=== PATIENT | male | born 1950 | race Hispanic/Latino ===

== ENCOUNTER 2018-12-21 09:00 | Day surgery (SDC) | payer OTHER ==
[2018-12-19 16:12] VITALS: BP 118/76
[2018-12-19 16:13] LABS: BASOPHILS % (AUTO) 0.7 % (0.0-5.0); EOSINOPHILS % (AUTO) 2.8 % (0.0-8.0); HEMATOCRIT 42.3 % (42-54); MEAN CORPUSCULAR HGB CONC 33.2 g/dL (32.0-36.0); MEAN CORPUSCULAR VOLUME 90.5 fL (79-99); NEUTROPHILS % (AUTO) 67.5 % (40.0-77.0); PLATELET COUNT (AUTO) 219 K/uL (130-400); RED BLOOD CELL COUNT(AUTO) 4.68 MIL/uL (4.50-6.20); RED CELL DISTRIBUTION WIDTH 13.2 % (11.0-15.5)
[2018-12-19 16:22] LABS: POTASSIUM 3.8 mmol/L (3.5-5.1)
[~2018-12-21] VITALS: Ht 167.6 cm; Wt 81.6 kg
[2018-12-21] VITALS (18 sets, daily range): BP systolic 109–127; BP diastolic 70–84
[~2018-12-21 09:00] MED LIST: ASPI-555 PO; ATOR10TA69 PO; CEFD300C3 PO; GENTAMICIN 80 MG/NS 100 ML PB 100 ML IV SCH; METO25TA6 PO
[2018-12-21] MEDS: CEFTRIAXONE SODIUM 1 GM IVP SCH ×2 (10:30→10:55)
[2018-12-21] MEDS ORDERED: LACTATED RINGERS 1000ML 1,000 ML IV ONE (10:30)
[2018-12-21] MEDS ORDERED: CIPR-245 PO (10:50)
[2018-12-21] MEDS ORDERED: TAMS-1 PO (10:50)
[2018-12-21] MEDS ORDERED: MIDAZOLAM HCL 1 MG/ML 2ML VIAL ONE (10:56)
[2018-12-21] MEDS ORDERED: PROPOFOL 10 MG/ML 20ML VIAL IV ONE (10:56)
[2018-12-21] MEDS ORDERED: FENTANYL CITRATE PF 50 MCG/1 ML 5ML AMP IV ONE (10:56)
[2018-12-21] MEDS ORDERED: EPHEDRINE SULFATE 50 MG/ML AMPULE ONE (12:13)
[2018-12-21] MEDS ORDERED: OPIUM/BELLADONNA ALKALOIDS 1 EACH SUPP.RECT RC ONE (12:45)
[2018-12-21] MEDS ORDERED: DEXAMETHASONE SOD PHOSPHATE 10MG/ML 1ML VIAL ONE (12:52)
[2018-12-21] MEDS ORDERED: LIDOCAINE PF 2% 5ML ABBOJECT ONE (12:52)
[2018-12-21] MEDS ORDERED: ONDANSETRON HCL 4 MG/2 ML VIAL ONE (12:53)
== END 2018-12-21 14:50 | disposition home or self-care (01) ==
LOC: DAH 09:00
PROVIDERS: ATTEND Urology
DX: N40.1 Benign prostatic hyperplasia with lower urinary tract symptoms (principal); R33.9 Retention of urine, unspecified; I10 Essential (primary) hypertension; E11.9 Type 2 diabetes mellitus without complications; Z79.84 Long term (current) use of oral hypoglycemic drugs; Z79.899 Other long term (current) drug therapy; Z98.890 Other specified postprocedural states; E66.3 Overweight
CPT/HCPCS: 36415; 52648; 80048; 85025; 88305; 93005; 96365; A4340; A4354; A4358; A4510; A4600; J0696; J1100; J1580; J2001; J2250; J2405; J2704; J3010; J3490; J7030; J7120

== ENCOUNTER → 2019-05-07 | Outpatient (CLI) | payer OTHER ==
[~2019-05-07] VITALS: Ht 165.1 cm; Wt 83.5 kg
[~2019-05-07] MED LIST changes: -ASPI-555 PO; +CIPR-245 PO; -GENTAMICIN 80 MG/NS 100 ML PB 100 ML IV SCH; +REGADENOSON 0.4 MG/5 ML PF SYG IVP SCH; +TAMS-1 PO
== END | disposition home or self-care (01) ==
LOC: SHCH 08:12
PROVIDERS: ATTEND Internal Medicine Cardiovascular Disease
DX: I48.19 Other persistent atrial fibrillation (principal)
CPT/HCPCS: 78452; 93017; 96374; A9500 ×2; J2785